=== PATIENT | female | born 1990 | race Hispanic/Latino ===

== ENCOUNTER → 2018-10-03 11:29 | Outpatient (CLI) | payer OTHER, SELFPAY ==
[2018-10-03 12:12] LABS: Hemoglobin A1C% w Est Avg Glu 5.4 % (4.0-6.0)
[2018-10-03 12:14] LABS: Add Manual Diff / Slide Review NO; Basophils Absolute Auto 0 /uL (0-100); Basophils Percent Auto 0.6 % (0-2); Eosinophils Absolute Auto 0 /uL (0-450); Eosinophils Percent Auto 0.6 % (2-4); Hematocrit 36.2 % (36-46); Hemoglobin 12.2 g/dL (12.0-16.0); Lymphocytes Absolute Auto 1600 /uL (1100-4500); Mean Corpuscular HGB Conc 33.8 % (30-36); Mean Corpuscular Volume 85.8 fL (80-100); Monocytes Absolute Auto 300 /uL (0-900); Monocytes Percent Auto 5.2 % (3-14); Neutrophils Absolute Auto 4100 /uL (1500-7000); Neutrophils Percent Auto 67.6 % (50-75); Platelet Count 289 X10^3/uL (150-400); Red Blood Cell Count 4.22 X10^6/uL (4.0-5.2); Red Cell Distribution Width 13.6 % (11.6-14.8)
[2018-10-03 12:35] LABS: Glucose 94 mg/dL (70-100)
[2018-10-03 12:48] LABS: HCG Quantitative /Beta subunit 354.15 mIU/mL
[2018-10-03 13:16] LABS: Appearance Urine UA CLEAR; Bilirubin Urine UA NEGATIVE (NEGATIVE); Color Urine UA YELLOW; Glucose Urine UA NEGATIVE (Negative); Ketones Urine UA NEGATIVE (NEGATIVE); Leukocyte Esterase Urine UA NEGATIVE (NEGATIVE); Nitrite Urine UA NEGATIVE (Negative); Occult Blood Urine UA NEGATIVE (Negative); Protein Urine UA NEGATIVE (Negative); Specific Gravity Urine UA 1.015 (1.000-1.035); Urobilinogen Urine UA 0.2 E.U./dL (0.2)
[2018-10-03 15:24] LABS: Hepatitis B Surface Antigen NEGATIVE s/c (NEGATIVE)
[2018-10-03 15:37] LABS: HIV 1 and 2 Antibody NEGATIVE (NEGATIVE); Hep C Virus Ab w/Reflex Quant NEGATIVE s/c (NEGATIVE)
[2018-10-05 16:23] LABS: Progesterone 16.8 ng/mL
[2018-10-07 11:22] LABS: RPR Screen Nonreactive (Nonreactive)
== END ==
LOC: LAB 11:30
PROVIDERS: PCP Family Medicine
DX: O02.1 Missed abortion (principal)
CPT/HCPCS: 36415; 80055; 81003; 82947; 83036; 84144; 84702; 86703; 86787; 86803; 86850; 86900; 86901; 87086

== ENCOUNTER → 2018-10-15 17:29 | Outpatient (CLI) | payer OTHER, SELFPAY ==
[2018-10-15 18:55] LABS: HCG Quantitative /Beta subunit 6256.6 mIU/mL
== END ==
DX: O02.1 Missed abortion (principal)
CPT/HCPCS: 36415; 84702

== ENCOUNTER → 2018-10-28 19:40 | Outpatient (REF) | payer OTHER, SELFPAY ==
[2018-10-28 22:11] LABS: Urine N gonorrhoeae NOT DETECTED
[2018-10-28 22:15] LABS: Urine Chlamydia NOT DETECTED
== END ==
LOC: LAB 19:40
DX: Z34.81 Encounter for supervision of other normal pregnancy, first trimester (principal); Z11.3 Encounter for screening for infections with a predominantly sexual mode of transmission; Z11.8 Encounter for screening for other infectious and parasitic diseases
CPT/HCPCS: 87491; 87591